=== PATIENT | female | born 1975 | race Hispanic/Latino ===

== ENCOUNTER 2018-02-16 12:45 | Emergency (ER) | payer BC ==
[~2018-02-16] VITALS: Ht 162.6 cm; Wt 59.0 kg
--- OUTSIDE RECORDS SUMMARY | 2018-02-16 12:48 | XMS REPORT | Summary of Care ---
Author Organization Unknown Address Unknown Phone Unavailable Encounter HQ Encntr_marlynedson(NINI) [id number] Date(s): 11/18/13 - 11/18/13 [facility] Outpatient Imaging [address] Discharge Disposition: Home Physician Attending: Roc Humphreys MD Reason for Visit 719.41 - JOINT PAIN-SHLD Problem List No data available for this section Allergies, Adverse Reactions, Alerts No data available for this section Medications No data available for this section Medications Administered During Your Visit No data available for this section Immunizations No data available for this section
--- OUTSIDE RECORDS SUMMARY | 2018-02-16 12:48 | XMS REPORT | Summary of Care ---
Author Organization Unknown Address Unknown Phone Unavailable Encounter HQ Encntr_alias(FIN) [id number] Date(s): 05/24/14 - 05/24/14 [facility] Outpatient Imaging [address] [phone] Discharge Disposition: Home Physician Attending: Kirstie Stockton MD Vital Signs No data available for this section Problem List No data available for this section Allergies, Adverse Reactions, Alerts No data available for this section Medications No data available for this section Results No data available for this section Immunizations No data available for this section Procedures No data available for this section Social History No data available for this section Assessment and Plan No data available for this section
--- OUTSIDE RECORDS SUMMARY | 2018-02-16 12:48 | XMS REPORT | Continuity of Care Document ---
Author Author Bkamann Organization Interface Address Unknown Phone Unavailable Problems Problem Status Onset Date Classification Date Reported Comments Source 626.6 - [place] Active 05/03/2014 [facility] 719.41 - JOINT PAIN-SHLD Active 11/17/2013 [facility] Medications Medication Details Route Status Patient Instructions Ordering Provider Order Date Source Allergies, Adverse Reactions, Alerts Substance Category Reaction Severity Reaction type Status Date Reported Comments Source Immunizations Immunization Date Given Site Status Last Updated Comments Source Results Order Name Results Value Reference Range Date Interpretation Comments Source US Breast Complete [facility] [place] US Breast Complete [facility] - US BREAST COMPLETE [facility] [place] ULTRASOUND OF BOTH BREASTS AND BOTH AXILLA: 05/24/2014 CLINICAL: Breast Mass. Comparison is made to exams dated: 05/24/2014 mammogram and 05/04/2014 mammogram - [facility] Outpatient Imaging Department. Color flow and real-time ultrasound of both breasts and both axilla were performed. There is a benign 6 mm oval cyst with a smooth internal wall in the right breast at 1 o'clock middle depth 1 cm from the nipple. This oval cyst is anechoic. This correlates with mammography findings. Color flow imaging demonstrates that there is no vascularity present. An additional 4 mm cyst is seen in the right breast at 12 o'clock. No abnormalities were seen sonographically in the left breast or either axilla. No sonographic correlate is identified for the focal asymmetry seen in the left breast by mammography. The mammographic finding likely represents normal breast parenchyma. IMPRESSION: BENIGN There is no sonographic evidence of malignancy. The 6 mm oval cyst in the right breast is benign. Follow-up with ACR/ACS guidelines. SUMMARY: These findings were discussed with the patient at the time of examination. Gorge Mendez M.D. Additional Observers: Joe ramsay/blue:05/24/2014 15:52:27 Research Agricultural Engineer: Nelida Garcia [facility] Outpatient Imaging Department This exam was dictated and interpreted by [id number] for [facility]. letter sent: Bilateral Benign Ultrasound BI-RADS: 2 Benign 05/24/2014 - - Read by: Gorge Mendez MD PHD Dictated Date/time: 05/24/14 15:52 Electronically Signed by: Gorge Mendez MD PHD 05/24/14 15:52 FINAL REPORT [facility] Digital Mammo DX [place] MA Digital Mammo DX [place] MA - DIGITAL MAMMO DX [facility] MA BILATERAL DIGITAL DIAGNOSTIC MAMMOGRAM WITH CAD: 05/24/2014 CLINICAL: Breast Mass. Current study was evaluated with a Computer Aided Detection (CAD) system. Comparison is made to exam dated: 05/04/2014 mammogram - [facility] Outpatient Imaging Department. The tissue of both breasts is heterogeneously dense, which could obscure detection of small masses. There is a 5 mm round mass in the right breast at 1 o'clock middle depth. This is less prominent. There is a 2.4 cm focal asymmetry in the left breast central to the nipple anterior depth. This is less prominent. No other significant masses or calcifications are seen in either breast. IMPRESSION: INCOMPLETE: NEEDS ADDITIONAL IMAGING EVALUATION The 5 mm round mass in the right breast at 1 o'clock middle depth most likely is a cyst and is indeterminate. An ultrasound is recommended. The 2.4 cm focal asymmetry in the left breast central to the nipple anterior depth most likely is fibroglandular tissue and is indeterminate. An ultrasound is recommended. SUMMARY: Ultrasound will be performed at this time; please see separate report. Gorge Mendez M.D. Additional Observers: Joe ramsay/penrad:05/24/2014 15:46:11 Research Agricultural Engineer: Naomi HAMMONDS(Jazmin)(M), [facility] Outpatient Imaging Department This exam was dictated and interpreted by [id number] for [facility]. Mammogram BI-RADS: 0 Indeterminate 05/24/2014 - - Read by: Gorge Mendez MD PHD Dictated Date/time: 05/24/14 15:46 Electronically Signed by: Gorge Mendez MD PHD 05/24/14 15:46 FINAL REPORT [facility] Digital Mammo Screening [place] MA Digital Mammo Screening [place] MA AMENDMENT: 05/12/2014 Gorge Mendez M.D. Prior mammogram was reviewed. The findings in right breast appears to be new and still need further evaluation with diagnostic mammogram and ultrasound. The findings in left breast appears to be more prominent and still need further evaluation with diagnostic mammogram and ultrasound. Amended BI-RADS: 0 Indeterminate letter sent: Additional Imaging - DIGITAL MAMMO SCREENING [facility] MA BILATERAL DIGITAL SCREENING MAMMOGRAM WITH CAD: 05/04/2014 CLINICAL: Routine. Current study was evaluated with a Computer Aided Detection (CAD) system. No prior exams were available for comparison. The tissue of both breasts is heterogeneously dense, which could obscure detection of small masses. There is a 5 mm round mass in the right breast at 1 o'clock middle depth. There is a 2.4 cm irregular focal asymmetry in the left breast central to the nipple anterior depth. No other significant masses or calcifications are seen in either breast. IMPRESSION: INCOMPLETE: NEEDS ADDITIONAL IMAGING EVALUATION The 5 mm round mass in the right breast at 1 o'clock middle depth is indeterminate. Craniocaudal view with spot compression, mediolateral oblique view with spot compression and lateral views are recommended. The 2.4 cm irregular focal asymmetry in the left breast central to the nipple anterior depth most likely is fibroglandular tissue and is indeterminate. Craniocaudal view with spot compression, mediolateral oblique view with spot compression and lateral views are recommended. SUMMARY: Prior mammograms are needed for comparison. If these become available, the above recommendations may not be needed and an addendum may be generated. Dr. Rosario morocho/blue:05/05/2014 17:46:57 Research Agricultural Engineer: Dorys Luna, [facility] Outpatient Imaging Department This exam was dictated and interpreted by [id number] for [facility]. letter sent: Additional Imaging Mammogram BI-RADS: 0 Indeterminate 05/04/2014 - - Read by: Rosario Heath MD Dictated Date/time: 05/12/14 15:51 Electronically Signed by: Rosario Heath MD 05/12/14 15:51 FINAL REPORT - - Read by: Rosario Heath MD Dictated Date/time: 05/05/14 17:46 Electronically Signed by: Rosario Heath MD 05/05/14 17:46 FINAL REPORT [facility] Vital Signs Vital Sign Value Date Comments Source Encounters Location Location Details Encounter Type Encounter Number Reason For Visit Attending Provider ADM Date DC Date Status Source [facility] Outpatient Imaging [place] [facility] [id number] Roc Humphreys 11/18/2013 11/19/2013 JUNE Falcon [facility] Outpatient Imaging [place] [facility] [id number] Kirstie Stockton 05/24/2014 05/25/2014 JUNE Falcon Procedures Procedure Code Date Perfomer Comments Source
--- OUTSIDE RECORDS SUMMARY | 2018-02-16 12:48 | XMS REPORT | Clinical Summary ---
Author Author [facility] Address Unknown Phone Unavailable Care Team Providers Care Sand Plant Attendant Name Role Phone Asked, No Pcp PCP Unavailable Allergies No Known Allergies Medications End Date Status Medication Sig Dispensed Refills Start Date 01/23/2018 traMADol (ULTRAM) 50 mg Take 1 tablet 30 tablet 0 tablet (50 mg total) 8 by mouth every 6 (six) hours as needed for moderate pain for up to 20 days. Active Problems Problem Noted Date Contusion of right heel 01/05/2018 Encounters Care Team Description Date Type Specialty Erick Lilly MD Contusion of right heel, initial encounter (Primary Dx) 01/03/2018 Office Visit Orthopedic Surgery after 02/15/2017 Social History Date Tobacco Use Types Packs/Day Years Used Current Every Day Smoker Cigarettes 2 4 Alcohol Use Drinks/Week oz/Week Comments Yes 2 Cans of beer Sex Assigned at Date Recorded Not on file Industry Job Start Date Occupation Not on file Not on file Not on file Travel End Travel History Travel Start No recent travel history available. Last Filed Vital Signs Not on file Plan of Treatment Health Maintenance Due Date Last Done Comments CERVICAL CANCER SCREENING 1998 INFLUENZA VACCINE 10/16/2017 HEPATITIS B VACCINES Aged Out No longer eligible based on patient's age to complete this topic IPV VACCINES Aged Out No longer eligible based on patient's age to complete this topic MENINGOCOCCAL VACCINE Aged Out No longer eligible based on patient's age to complete this topic Procedures Comments Procedure Name Priority Date/Time Associated Diagnosis XR CALCANEUS 2+ VW RIGHT Routine 01/03/2018 Inflammatory heel pain, 1:19 PM CDT right after 02/15/2017 Results * XR Calcaneus 2+ Vw Right (01/03/2018 1:19 PM CDT) Narrative Performed At [facility] 2 views of right calcaneus demonstrate plantar calcaneal spur with questionable lucency. No fracture of calcaneal body or tuberosity noted. No degenerative changes. Performing Organization Address City/State/Zipcode Phone Number [facility] [address] [place] [address] after 02/15/2017 Insurance Payer Benefit Subscriber ID Type Phone Address Plan / Group BCBS BCBS xxxxxxxxxxxx PPO CHOICE PPO/ABRIL DANIEL PPO Advance Directives Patient has advance care planning documents on file. For more information, fior cabrera contact: Juventino Evans [address] [place] [address]
[2018-02-16] MEDS ORDERED: SODIUM CHLORIDE 0.9% 1000ML 1,000 ML IV SCH (13:00)
[2018-02-16] MEDS ORDERED: CEFTRIAXONE SOD 1 GM VIAL IV SCH (13:00)
[2018-02-16] MEDS ORDERED: KETOROLAC TROMETHAMINE 30 MG/ML VIAL IV NR ×2 (13:15→16:00)
[2018-02-16 16:42] LABS: BASOPHILS % 0.4 % (0.0-1.0); EOSINOPHILS # (AUTO) 0.2 (0.0-0.4); EOSINOPHILS % 1.9 % (0.0-6.0); HEMATOCRIT 41.5 % (34.2-44.1); LYMPHOCYTES % 12.9 % (18.0-39.1); MEAN CORPUSCULAR HEMOGLOBIN 31.6 pg (28-32); MEAN CORPUSCULAR HGB CONC 33.7 g/dL (31-35); MEAN CORPUSCULAR VOLUME 93.7 fL (81-99); MONOCYTES # (AUTO) 0.6 (0.2-0.8); MONOCYTES % 8.2 % (4.4-11.3); NEUTROPHILS % 76.1 % (38.7-80.0); PLATELET COUNT 246 x10e3/uL (140-360); RED BLOOD COUNT 4.43 x10e6/uL (3.6-5.1); RED CELL DISTRIBUTION WIDTH 12.9 % (11.7-14.4)
[2018-02-16 16:53] LABS: COLOR,URINE YELLOW (YELLOW)
[2018-02-16 16:55] LABS: CLARITY,URINE CLOUDY (CLEAR)
[2018-02-16 16:56] LABS: ALANINE AMINOTRANSFERASE 9 IU/L (0-55); ALBUMIN 3.3 g/dL (3.5-5.0); ALBUMIN/GLOBULIN RATIO 0.8 (0.8-2.0); ALKALINE PHOSPHATASE 102 IU/L (40-150); ANION GAP 14.4 mmol/L (8-16); BLOOD UREA NITROGEN 13 mg/dL (7-26); BUN/CREATININE RATIO 14 (6-25); CALCIUM 9.5 mg/dL (8.4-10.2); CARBON DIOXIDE 22 mmol/L (22-29); CHLORIDE 99 mmol/L (98-107); EST GLOMERULAR FILTRATION RATE > 60 ML/MIN (60-); GLUCOSE 139 mg/dL (74-118); POTASSIUM 3.4 mmol/L (3.5-5.1); SODIUM 132 mmol/L (136-145)
[2018-02-16 16:56] LABS: LEUKOCYTE ESTERASE ,URINE 1+ (NEGATIVE); NITRITE,URINE NEGATIVE (NEGATIVE); PROTEIN,URINE DIPSTICK TRACE (NEGATIVE)
[2018-02-16 16:57] LABS: BILIRUBIN,URINE NEGATIVE (NEGATIVE); KETONES,URINE NEGATIVE (NEGATIVE); URINE UROBILINOGEN 0.2 mg/dL (0.2 - 1)
[2018-02-16 17:02] LABS: HCG,QUANTITATIVE < 1.20 mIU/mL (0-10)
[2018-02-16 17:03] LABS: BACTERIA,URINE MODERATE /HPF; CALCIUM OXALATE CRYSTALS,UR FEW (FEW); EPITHELIAL CELLS,URINE MODERATE /LPF; WBC,URINE (MAN) >50 /HPF (0-5)
[2018-02-16] MEDS ORDERED: PHENAZOPYRIDINE HCL 100 MG TAB PO SCH (18:00)
--- NOTE | 2018-02-16 18:57 | Diagnostic Imaging Report ---
EXAM: CT Abdomen and Pelvis WITHOUT contrast INDICATION: UTI. Infection. COMPARISON: None. TECHNIQUE: Abdomen and pelvis were scanned utilizing a multidetector helical scanner from the lung base to the pubic symphysis without administration of IV contrast. Absence of intravenous contrast decreases sensitivity for detection of focal lesions and vascular pathology. Coronal and sagittal reformations were obtained. Routine protocol was performed. IV CONTRAST: None. ORAL CONTRAST: Water RADIATION DOSE: Total DLP: 209.41 mGy*cm Estimated effective dose: (DLP x 0.015 x size factor) mSv COMPLICATIONS: None FINDINGS: LINES and TUBES: None. LOWER THORAX: Unremarkable HEPATOBILIARY: 8 mm cyst in segment 6 of the liver on image 53. No biliary ductal dilation. GALLBLADDER: No radio-opaque stones or sludge. No wall thickening. SPLEEN: No splenomegaly. PANCREAS: No focal masses or ductal dilatation. ADRENALS: No adrenal nodules KIDNEYS/URETERS: No hydronephrosis. No cystic or solid mass lesions. No stones. GI TRACT: No abnormal distention, wall thickening, or evidence of bowel obstruction. Appendix is normal. PELVIC ORGANS/BLADDER: Unremarkable. LYMPH NODES: No lymphadenopathy. VESSELS: Unremarkable. PERITONEUM / RETROPERITONEUM: No free air or fluid. BONES: Unremarkable. SOFT TISSUES: Unremarkable. IMPRESSION: 1. No acute abdominal pelvic abnormality. No urolithiasis or obstructive uropathy. Signed by: Dr. Shelli Mata M.D. on 02/16/2018 6:54 PM
== END 2018-02-16 20:44 | disposition home or self-care (01) ==
LOC: ER 12:45
DX: R30.0 Dysuria (principal); M54.5 Low back pain; N30.91 Cystitis, unspecified with hematuria
CPT/HCPCS: 36415; 74176; 80053; 81001; 84702; 85025; 99284; J0696; J1885; J7030